=== PATIENT | female | born 2000 | race Caucasian/White ===

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

== ENCOUNTER 2022-10-08 19:06 | Emergency (ER) | payer OTHER ==
[2022-10-08 19:11] VITALS: RESP 18; BMI 27.4
[2022-10-08 21:43] LABS: BASO % 0.2 % (0-2.0); EOS % 1.3 % (0-4.5); HEMATOCRIT 38.7 % (32.4-45.2); HEMOGLOBIN 12.8 GM/dL (10.7-15.3); LYMPH % 24.3 % (8-40); MCH 30.4 pg (25.7-33.7); MCHC 33.1 g/dl (32.0-36.0); MEAN CELL VOLUME 91.7 fl (80-96); MEAN PLT VOLUME 9.2 fl (7.5-11.1); MONO % 6.8 % (3.8-10.2); NEUT % 67.4 % (42.8-82.8); PLATELET COUNT 310 10^3/uL (134-434); RBC 4.22 M/mm3 (3.60-5.2); RDW 12.8 % (11.6-15.6); WHITE BLOOD COUNT 13.2 K/mm3 (4.0-10.0)
[2022-10-08 21:55] LABS: POTASSIUM 4.1 mmol/L (3.5-5.1)
[2022-10-08 21:57] LABS: BLOOD UREA NITROGEN 10.8 mg/dL (7-18); CALCIUM 9.5 mg/dL (8.5-10.1)
[2022-10-08 21:58] LABS: ALBUMIN 4.6 g/dl (3.4-5.0)
[2022-10-08 22:01] LABS: CREATININE 0.6 mg/dL (0.55-1.3)
[2022-10-08 22:02] LABS: BILIRUBIN,TOTAL 0.3 mg/dL (0.2-1); TOT PROT 8.6 g/dl (6.4-8.2)
[2022-10-08 22:43] VITALS: BP 117/81; PULSE 70; TEMP 98
== END 2022-10-08 23:57 | disposition home or self-care (01) ==
LOC: JER 19:06
DX: R07.9 Chest pain, unspecified (principal); R20.0 Anesthesia of skin
CPT/HCPCS: 36415; 70450-TC; 72125-TC; 80053; 84484; 84703; 85025; 93005; 93010; 99284-25